=== PATIENT | female | born 1990 | race Caucasian/White ===

== ENCOUNTER 2016-11-24 13:03 | Emergency (ER) | payer MEDICAID, OTHER ==
[2016-11-24 13:04] VITALS: BMI 19.5
[2016-11-24 13:19] VITALS: TEMP 98.2
--- NOTE | 2016-11-24 13:49 | C.PDOC ---
History Of Present Illness 26 yr old female presents to the ER stating she normally gets irregular periods , LMP was October 16. Patient states usually before her period starts she gets lower abdominal cramping which she has been getting for the past 2 weeks but her period has not started yet. States last night she took a test which was positive. Patient states she has been trying to get for the past 3 years and is here just to make sure everything normal. Patient also reports of occasional stabbing sensation, states sometimes its on the right and sometimes its on the left, also reports of fatigue and nausea. Denies fever, chills, chest pain, SOB, vomiting, constipation, dysuria, incontinence, vaginal bleeding, weakness or numbness. Time Seen by Provider: 11/24/16 13:36 Chief Complaint (Nursing): Female Genitourinary History Per: Patient History/Exam Limitations: no limitations Onset/Duration Of Symptoms: Days (2 weeks) Current Symptoms Are (Timing): Still Present Quality Of Discomfort: Stabbing Past Medical History Reviewed: Historical Data, Nursing Documentation, Vital Signs Vital Signs: Last Vital Signs Temp 98.2 F 11/24/16 13:17 Pulse 67 11/24/16 14:30 Resp 16 11/24/16 14:30 BP 92/53 L 11/24/16 14:30 Pulse Ox 100 11/24/16 15:47 Family History: States: No Known Family Hx - Social History Hx Tobacco Use: No Hx Alcohol Use: No Hx Substance Use: No - Immunization History Hx Tetanus Toxoid Vaccination: No Hx Influenza Vaccination: No Hx Pneumococcal Vaccination: No Review Of Systems Except As Marked, All Systems Reviewed And Found Negative. Constitutional: Negative for: Fever, Chills Cardiovascular: Negative for: Chest Pain Respiratory: Negative for: Shortness of Breath Gastrointestinal: Positive for: Nausea, Abdominal Pain (Cramping ). Negative for: Vomiting, Constipation Genitourinary: Negative for: Dysuria, Incontinence, Vaginal Bleeding Neurological: Negative for: Weakness, Numbness Physical Exam - Physical Exam Appears: Well, Non-toxic, No Acute Distress Skin: Normal Color, Warm, Dry, No Rash Head: Atraumatic, Normacephalic Eye(s): bilateral: Normal Inspection, PERRL, EOMI Oral Mucosa: Moist Chest: Symmetrical, No Tenderness Cardiovascular: Rhythm Regular, No Murmur Respiratory: Normal Breath Sounds, No Rales, No Rhonchi, No Stridor, No Wheezing Gastrointestinal/Abdominal: Normal Exam, Soft, No Tenderness, No Guarding, No Rebound Extremity: Normal ROM, No Swelling Neurological/Psych: Oriented x3, Normal Speech, Normal Motor ED Course And Treatment - Laboratory Results Result Diagrams: 11/24/16 14:15 Lab Interpretation: Normal Interpretation Of Abnormal: BHCG 8907.7 O2 Sat by Pulse Oximetry: 100 - CT Scan/US US - Tranvaginal Other Rad Studies (CT/US): Read By Radiologist, Radiology Report Reviewed CT/US Interpretation: ADDENDUM: Intrauterine , too small to adequately date with intrauterine gestational sac measuring 7.6 millimeters. Yolk sac identified. This is likely related to an early intrauterine though missed cannot entirely be excluded. . Continued interval followup is recommended. Limited 1st trimester ultrasound for viability purposes only. Continued interval followup with serial ultrasound, serial HCG levels, and gynecological consultation would be helpful if clinically indicated. [ Addendum Report Added by Moncho Jefferson MD at 11/24/2016 15:41:30 ] . Pelvic ultrasound. History: . Pain. Comparison: None available. Technique: Real-time sonography was performed through the pelvis utilizing transabdominal and transvaginal techniques. Findings: LMP of 10/16/2016. Gestational age of 5 weeks and 4 days by LMP. Uterus: 8.0 x 5.5 x 7.4 centimeters. Anteverted. Thickened heterogeneous endometrium. Small hypoechoic focus within the uterus measuring 7.6 mm suggestive for an intrauterine gestational sac, too small to adequately date. Yolk sac identified. No pole identified. No heart rate identified. No free fluid in the pelvic cul-de-sac. Right ovary: 3.3 x 2.0 x 3.6 centimeters. Normal flow. Hypoechoic cyst within the right ovary measuring 1.6 x 1.5 x 1.9 centimeters with associated increased echogenicity. Left ovary: Not well visualized. Impression: Intrauterine , too small to adequately date with intrauterine gestational sac measuring 7.6 millimeters. Yolk sac identified. This is likely related to an early intrauterine . Continued interval followup is recommended. Heterogeneous cyst measuring 1.9 centimeters in the right ovary which may represent a corpus luteal cyst. Left ovary not well visualized. Limited 1st trimester ultrasound for viability purposes only. Continued interval followup with serial ultrasound, serial HCG levels, and gynecological consultation would be helpful if clinically indicated. Reevaluation Time: 15:51 Reassessment Condition: Improved Medical Decision Making Medical Decision Making: PLAN: * US - Transvaginal * Beta Quant * CBC * Urinalysis Disposition - Disposition Referrals: [facility] [Outside] Disposition: HOME/ ROUTINE Disposition Time: 15:51 Condition: STABLE Instructions: (ED) - Clinical Impression Clinical Impression: Early stage of - Scribe Statement The provider has reviewed the documentation as recorded by the Ralf Olivas Provider Attestation: All medical record entries made by the Ralf were at my direction and personally dictated by me. I have reviewed the chart and agree that the record accurately reflects my personal performance of the history, physical exam, medical decision making, and the department course for this patient. I have also personally directed, reviewed, and agree with the discharge instructions and disposition.
[2016-11-24 14:18] LABS: BASO % 0.3 % (0.0-2.0); EOS % 0.8 % (0.0-4.0); HEMATOCRIT 36.4 % (34.0-47.0); MEAN CELL VOLUME 82.2 fL (81.0-99.0); MEAN CORPUSCULAR HEMOGLOBIN 27.4 pg (27.0-31.0); MEAN CORPUSCULAR HGB CONC 33.3 g/dL (33.0-37.0); MEAN PLATELET VOLUME 8.1 fL (7.2-11.7); MONO # 0.4 K/uL (0.0-0.8); MONO % 7.2 % (0.0-10.0); NRBC % 0.1 % (0.0-2.0); RED CELL DISTRIBUTION WIDTH 14.2 % (11.5-14.5); WHITE BLOOD COUNT 5.5 K/uL (4.8-10.8)
[2016-11-24 14:23] LABS: URINE BACTERIA RARE (<OCC); URINE BILIRUBIN NEGATIVE (NEGATIVE); URINE BLOOD NEGATIVE (NEGATIVE); URINE COLOR Yellow (YELLOW); URINE GLUCOSE (UA) NORMAL (Normal); URINE KETONE TRACE mg/dL (NEGATIVE); URINE LEUKOCYTE ESTERASE NEG Leu/uL (Negative); URINE PROTEIN NEGATIVE (NEGATIVE); URINE UROBILINOGEN NORMAL mg/dL (0.2-1.0); WBC URINE < 1 /hpf (0-5)
[2016-11-24 14:59] VITALS: RESP 16
--- NOTE | 2016-11-24 15:37 | US ---
Pelvic ultrasound History: . Pain. Comparison: None available. Technique: Real-time sonography was performed through the pelvis utilizing transabdominal and transvaginal techniques. Findings: LMP of 10/16/2016. Gestational age of 5 weeks and 4 days by LMP. Uterus: 8.0 x 5.5 x 7.4 centimeters. Anteverted. Thickened heterogeneous endometrium. Small hypoechoic focus within the uterus measuring 7.6 mm suggestive for an intrauterine gestational sac, too small to adequately date. Yolk sac identified. No pole identified. No heart rate identified. No free fluid in the pelvic cul-de-sac. Right ovary: 3.3 x 2.0 x 3.6 centimeters. Normal flow. Hypoechoic cyst within the right ovary measuring 1.6 x 1.5 x 1.9 centimeters with associated increased echogenicity. Left ovary: Not well visualized. Impression: Intrauterine , too small to adequately date with intrauterine gestational sac measuring 7.6 millimeters. Yolk sac identified. This is likely related to an early intrauterine . Continued interval followup is recommended. Heterogeneous cyst measuring 1.9 centimeters in the right ovary which may represent a corpus luteal cyst. Left ovary not well visualized. Limited 1st trimester ultrasound for viability purposes only. Continued interval followup with serial ultrasound, serial HCG levels, and gynecological consultation would be helpful if clinically indicated.
[2016-11-24 15:47] VITALS: O2SAT 100
[2016-11-24 15:57] VITALS: BP 111/67; PULSE 71
== END 2016-11-24 16:06 | disposition home or self-care (01) ==
LOC: C.ER 13:03
DX: O26.891 Other specified pregnancy related conditions, first trimester (principal); R10.9 Unspecified abdominal pain

== ENCOUNTER 2017-01-10 01:20 | Emergency (ER) | payer MEDICAID, OTHER ==
[2017-01-10 01:20] VITALS: BMI 19.5
[2017-01-10 01:32] VITALS: BP 117/67; PULSE 68; RESP 20; TEMP 98.5; O2SAT 100
--- NOTE | 2017-01-10 01:50 | C.PDOC ---
History Of Present Illness 26 year old female who presents to the ER with a complaint of a tick bite to the back after she was in the park today. Patient notes she is 3 months ; patient denies abdominal pain contrary to triage note, or any other obstetrical complaints. Time Seen by Provider: 01/10/17 01:32 Chief Complaint (Nursing): Bite History Per: Patient History/Exam Limitations: no limitations Onset/Duration Of Symptoms: Hrs Current Symptoms Are (Timing): Still Present Location Of Injury: Posterior: Back Quality Of Symptoms: Painful Recent travel outside of the [place]: No Past Medical History Reviewed: Historical Data, Nursing Documentation, Vital Signs Vital Signs: Last Vital Signs Temp 98.5 F 01/10/17 01:28 Pulse 68 01/10/17 01:28 Resp 20 01/10/17 01:28 BP 117/67 01/10/17 01:28 Pulse Ox 100 01/10/17 02:08 - Medical History PMH: No Chronic Diseases Surgical History: No Surg Hx Family History: States: Unknown Family Hx - Social History Hx Tobacco Use: No Hx Alcohol Use: No Hx Substance Use: No - Immunization History Hx Tetanus Toxoid Vaccination: No Hx Influenza Vaccination: No Hx Pneumococcal Vaccination: No Review Of Systems Gastrointestinal: Negative for: Abdominal Pain Genitourinary: Negative for: Vaginal Discharge, Vaginal Bleeding Skin: Positive for: Other (Tick bite) Physical Exam - Physical Exam Appears: Non-toxic, Other (Crying hysterically) Skin: Normal Color, Warm, Dry, Other (Tick attached to right mid back, no localized swelling or erythema) Head: Atraumatic, Normacephalic Oral Mucosa: Moist Gastrointestinal/Abdominal: Soft, No Tenderness Neurological/Psych: Oriented x3, Normal Speech, Normal Cognition ED Course And Treatment O2 Sat by Pulse Oximetry: 100 (Room air) Pulse Ox Interpretation: Normal Progress Note: Bendryl and rocephin administered. Tick was successfully removed fully with surgical clamps; patient was instructed to return if she develops a fever, generalized body aches, or rash or abd pain or worse. Disposition Counseled Patient/Family Regarding: Diagnosis, Need For Followup, Rx Given - Disposition Referrals: OB, Private doctor [Other] Disposition: HOME/ ROUTINE Disposition Time: 01:47 Condition: STABLE Additional Instructions: Please follow up with PMD or OB in 2 days Return to ER if fever, rash, diffuse joint pain, or worse Instructions: Tick Bite (ED) - Clinical Impression Clinical Impression: Tick bite of back - Scribe Statement The provider has reviewed the documentation as recorded by the Scribjoseluis Gordon All medical record entries made by the Ashleyibjoseluis were at my direction and personally dictated by me. I have reviewed the chart and agree that the record accurately reflects my personal performance of the history, physical exam, medical decision making, and the department course for this patient. I have also personally directed, reviewed, and agree with the discharge instructions and disposition.
[2017-01-10] MEDS ORDERED: cefTRIAXone (Rocephin) 250 mg Inj IM STA (01:51)
== END 2017-01-10 02:15 | disposition home or self-care (01) ==
LOC: C.ER 01:20
DX: S20.461A Insect bite (nonvenomous) of right back wall of thorax, initial encounter (principal); W57.XXXA Bitten or stung by nonvenomous insect and other nonvenomous arthropods, initial encounter; Y92.830 Public park as the place of occurrence of the external cause
CPT/HCPCS: 96372; 99285; J0696